=== PATIENT | female | born 1975 | race Caucasian/White ===

== ENCOUNTER 2018-03-29 19:05 | Emergency (ER) | payer OTHER ==
[2018-03-29] MEDS ORDERED: METHYLPREDNISOLONE 125 MG INJ ONE (19:56)
[2018-03-29] MEDS ORDERED: LEVALBUTEROL 1.25 MG/3 ML NEB ONE (19:56)
[2018-03-29] MEDS ORDERED: HYDROCODONE/CHLORPHEN 5 ML/OSYR ONE (19:56)
--- NOTE | 2018-03-29 21:00 | EDPHYS ---
Physician Documentation [facility] Name: Kianna Arellano Age: 42 yrs Sex: Female : 1975 Arrival Date: 03/29/2018 Time: 19:07 Bed 20 Private MD: ED Physician Michaela Tao HPI: 03/29 20:00 This 42 yrs old Female presents to ER via Ambulatory with complaints of pm1 Cough, Congestion. 20:00 The patient or guardian reports cough, with productive sputum. Onset: The pm1 symptoms/episode began/occurred 3 day(s) ago. Severity of symptoms: in the emergency department the symptoms are unchanged. Modifying factors: The symptoms are alleviated by nothing, the symptoms are aggravated by nothing. Associated signs and symptoms: Pertinent positives: second hand smoke exposure from significant other, Pertinent negatives: chest pain, ear ache, fever, sore throat, shortness of breath. The patient has experienced similar episodes in the past, a few times. The patient has not recently seen a physician. Has been taking OTC Robitussin for cough but not improving her symptoms. Historical: - Allergies: 19:17 No Known Allergies; ss - Home Meds: 19:17 None [Active]; ss - PMHx: 19:17 None; ss - PSHx: 19:17 Tubal ligation; ss - Immunization history:: Adult Immunizations up to date. - Social history:: Smoking status: Patient/guardian denies using tobacco. - Ebola Screening: : Patient denies exposure to infectious person Patient denies travel to an Ebola-affected area in the 21 days before illness onset. ROS: 20:00 Constitutional: Negative for fever, chills, and weight loss, Eyes: Negative for injury, pm1 pain, redness, and discharge, ENT: Negative for injury, pain, and discharge, Positive for post nasal drainage Neck: Negative for injury, pain, and swelling, Cardiovascular: Negative for chest pain, palpitations, and edema. 20:00 Abdomen/GI: Negative for abdominal pain, nausea, vomiting, diarrhea, and constipation, Back: Negative for injury and pain, : Negative for injury, bleeding, discharge, and swelling, MS/Extremity: Negative for injury and deformity, Skin: Negative for injury, rash, and discoloration, Neuro: Negative for headache, weakness, numbness, tingling, and seizure. 20:00 Respiratory: Positive for cough, with yellow sputum, Negative for shortness of breath, wheezing. Exam: 20:00 Constitutional: This is a well developed, well nourished patient who is awake, alert, pm1 and in no acute distress. Head/Face: Normocephalic, atraumatic. Eyes: Pupils equal round and reactive to light, extra-ocular motions intact. Lids and lashes normal. Conjunctiva and sclera are non-icteric and not injected. Cornea within normal limits. Periorbital areas with no swelling, redness, or edema. ENT: Nares patent. No nasal discharge, no septal abnormalities noted. Tympanic membranes are normal and external auditory canals are clear. Oropharynx with no redness, swelling, or masses, exudates, or evidence of obstruction, uvula midline. Mucous membranes moist. Neck: Trachea midline, no thyromegaly or masses palpated, and no cervical lymphadenopathy. Supple, full range of motion without nuchal rigidity, or vertebral point tenderness. No Meningismus. Chest/axilla: Normal chest wall appearance and motion. Nontender with no deformity. No lesions are appreciated. Cardiovascular: Regular rate and rhythm with a normal S1 and S2. No gallops, murmurs, or rubs. Normal PMI, no JVD. No pulse deficits. Respiratory: Lungs have equal breath sounds bilaterally, clear to auscultation and percussion. No rales, rhonchi or wheezes noted. No increased work of breathing, no retractions or nasal flaring. Abdomen/GI: Soft, non-tender, with normal bowel sounds. No distension or tympany. No guarding or rebound. No evidence of tenderness throughout. Back: No spinal tenderness. No costovertebral tenderness. Full range of motion. Skin: Warm, dry with normal turgor. Normal color with no rashes, no lesions, and no evidence of cellulitis. MS/ Extremity: Pulses equal, no cyanosis. Neurovascular intact. Full, normal range of motion. 20:00 Neuro: Orientation: is normal, Motor: is normal, moves all fours, Gait: is steady, at a normal pace, without difficulty. Vital Signs: 19:17 BP 144 / 106; Pulse 126; Resp 18; Temp 98.2; Pulse Ox 99% on R/A; Weight 117.93 kg; ss Height 5 ft. 9 in. (175.26 cm); Pain 0/10; 20:00 Pulse 109; Resp 18; Pulse Ox 100% on R/A; lp1 21:09 BP 126 / 76; Pulse 113; Resp 18; Pulse Ox 99% on R/A; lp1 19:17 Body Mass Index 38.39 (117.93 kg, 175.26 cm) ss MDM: 19:25 Patient medically screened. pm1 20:36 Data reviewed: vital signs. Data interpreted: Pulse oximetry: on room air is 100 %. pm1 Interpretation: normal. Counseling: I had a detailed discussion with the patient and/or guardian regarding: the historical points, exam findings, and any diagnostic results supporting the discharge/admit diagnosis, the need for outpatient follow up, to return to the emergency department if symptoms worsen or persist or if there are any questions or concerns that arise at home. Administered Medications: 19:43 CANCELLED (Physician Discretion): Albuterol 2.5 mg Inhalation once pm1 19:57 Drug: Tussionex Pennkinetic ER 5 ml Route: PO; lp1 21:09 Follow up: Response: Marked relief of symptoms lp1 19:57 Drug: SOLU-Medrol 125 mg Route: IM; Site: left gluteus; lp1 21:10 Follow up: Response: No adverse reaction 1 19:58 Drug: Xopenex 1.25 mg Route: Inhalation; lp1 Disposition: 21:58 Co-signature as Attending Physician, Michaela Tao MD. ma2 Disposition: 03/29/18 20:59 Discharged to Home. Impression: Bronchitis, not specified as acute or chronic. - Condition is Stable. - Discharge Instructions: Acute Bronchitis, Adult, How to Use an Inhaler. - Prescriptions for Medrol (Go) 4 mg Oral Tablets, Dose Pack - take 1 tablet by ORAL route as directed - follow package instructions; 1 packet. Albuterol Sulfate 90 mcg/actuation - inhale 1-2 puff by INHALATION route every 4-6 hours; 1 Inhaler. Guaifenesin AC 10- 100 mg/5 mL Oral Liquid - take 10 milliliter by ORAL route every 4 hours As needed; 240 milliliter. - Medication Reconciliation Form, Thank You Letter, Antibiotic Education, Prescription Opioid Use form. - Follow up: Emergency Department; When: As needed; Reason: Worsening of condition. Follow up: Private Physician; When: 2 - 3 days; Reason: Recheck today's complaints, Continuance of care, Re-evaluation by your physician. - Problem is new. - Symptoms have improved. Signatures: Jonna Crespo, RN RN Carrie Saez RN RN lp1 Chacorta Soliman, HANDLE MACHINE OPERATOR HANDLE MACHINE OPERATOR pm1 Michaela Tao MD MD ma2 Corrections: (The following items were deleted from the chart) 19:43 19:40 Albuterol 2.5 mg Inhalation once ordered. pm1 pm1 21:10 20:59 03/29/2018 20:59 Discharged to Home. Impression: Bronchitis, not specified as lp1 acute or chronic. Condition is Stable. Forms are Medication Reconciliation Form, Thank You Letter, Antibiotic Education, Prescription Opioid Use. Follow up: Emergency Department; When: As needed; Reason: Worsening of condition. Follow up: Private Physician; When: 2 - 3 days; Reason: Recheck today's complaints, Continuance of care, Re-evaluation by your physician. Problem is new. Symptoms have improved. pm1
--- NOTE | 2018-03-29 21:00 | ER ---
Nurse's Notes [facility] Name: Kianna Arellano Age: 42 yrs Sex: Female : 1975 Arrival Date: 03/29/2018 Time: 19:07 Bed 20 Private MD: Diagnosis: Bronchitis, not specified as acute or chronic Presentation: 03/29 19:16 Presenting complaint: Patient states: productive cough that began 2-3 days ago. Denies ss fever. Transition of care: patient was not received from another setting of care. Resp Distress? No respiratory distress is noted at this time. Onset of symptoms was March 26, 2018. Risk Assessment: Do you want to hurt yourself or someone else? Patient reports no desire to harm self or others. Initial Sepsis Screen: Does the patient meet any 2 criteria? No. Patient's initial sepsis screen is negative. Does the patient have a suspected source of infection? No. Patient's initial sepsis screen is negative. Care prior to arrival: None. 19:16 Method Of Arrival: Ambulatory ss 19:16 Acuity: PAULIE 2 ss Historical: - Allergies: 19:17 No Known Allergies; ss - Home Meds: 19:17 None [Active]; ss - PMHx: 19:17 None; ss - PSHx: 19:17 Tubal ligation; ss - Immunization history:: Adult Immunizations up to date. - Social history:: Smoking status: Patient/guardian denies using tobacco. - Ebola Screening: : Patient denies exposure to infectious person Patient denies travel to an Ebola-affected area in the 21 days before illness onset. Screenin:06 Abuse screen: Denies threats or abuse. Denies injuries from another. Nutritional lp1 screening: No deficits noted. Tuberculosis screening: No symptoms or risk factors identified. Fall Risk None identified. Assessment: 19:45 General: Appears in no apparent distress. Behavior is appropriate for age. Pain: Denies lp1 pain. Neuro: Level of Consciousness is awake, alert, obeys commands, Oriented to person, place, time, situation. Cardiovascular: Patient's skin is warm and dry. Respiratory: Reports cough that is Respiratory effort is even, unlabored, Respiratory pattern is regular, symmetrical, Breath sounds are clear bilaterally. the patient has mild shortness of breath. GI: No signs and/or symptoms were reported involving the gastrointestinal system. : No signs and/or symptoms were reported regarding the genitourinary system. EENT: Reports nasal congestion. Derm: Skin is pink, warm \T\ dry. Musculoskeletal: Circulation, motion, and sensation intact. 20:30 Reassessment: Patient is alert, oriented x 3, equal unlabored respirations, skin lp1 warm/dry/pink. Patient states feeling better. Vital Signs: 19:17 BP 144 / 106; Pulse 126; Resp 18; Temp 98.2; Pulse Ox 99% on R/A; Weight 117.93 kg; ss Height 5 ft. 9 in. (175.26 cm); Pain 0/10; 20:00 Pulse 109; Resp 18; Pulse Ox 100% on R/A; lp1 21:09 BP 126 / 76; Pulse 113; Resp 18; Pulse Ox 99% on R/A; lp1 19:17 Body Mass Index 38.39 (117.93 kg, 175.26 cm) ED Course: 19:07 Patient arrived in ED. as 19:17 Triage completed. ss 19:17 Arm band placed on right wrist. ss 19:22 Chacorta Soliman NP is PHCP. pm1 19:22 Michaela Tao MD is Attending Physician. pm1 19:50 Carrie Saez, MANDI is Primary Nurse. lp1 20:05 Patient has correct armband on for positive identification. Pulse ox on. NIBP on. lp1 20:06 No provider procedures requiring assistance completed. Patient did not have IV access lp1 during this emergency room visit. Administered Medications: 19:43 CANCELLED (Physician Discretion): Albuterol 2.5 mg Inhalation once pm1 19:57 Drug: Tussionex Pennkinetic ER 5 ml Route: PO; lp1 21:09 Follow up: Response: Marked relief of symptoms lp1 19:57 Drug: SOLU-Medrol 125 mg Route: IM; Site: left gluteus; lp1 21:10 Follow up: Response: No adverse reaction lp1 19:58 Drug: Xopenex 1.25 mg Route: Inhalation; lp1 Outcome: 20:59 Discharge ordered by . pm1 21:09 Discharged to home ambulatory, with significant other. lp1 21:09 Condition: good 21:09 Discharge instructions given to patient, Instructed on discharge instructions, follow up and referral plans. medication usage, Demonstrated understanding of instructions, follow-up care, medications, Prescriptions given X 3. 21:10 Patient left the ED. lp1 Signatures: Davida Root Shelby, RN RN ss Carrie Saez RN RN lp1 Chacorta Soliman, [employer] CLEAN[employer] SPECIALIST pm1 Corrections: (The following items were deleted from the chart) 19:19 19:16 Acuity: PAULIE 4 [facility]
== END 2018-03-29 21:10 | disposition home or self-care (01) ==
LOC: ER 19:05
DX: J40 Bronchitis, not specified as acute or chronic (principal)
CPT/HCPCS: 96372; 99284; J2930